=== PATIENT | female | born 1945 | race Caucasian/White ===

== ENCOUNTER 2023-05-10 16:31 | Inpatient (IN) | payer OTHER ==
[~2023-05-10] VITALS: Ht 162.6 cm; Wt 77.6 kg
[2023-05-10 16:45] VITALS: BP 69/37; PULSE 104; RESP 18; TEMP 97; O2SAT 97
[2023-05-10] MEDS ORDERED: NACL 0.9% 1,000 ML IV ONE ×2 (16:50→18:50)
[2023-05-10 17:05] LABS: HEMATOCRIT 24.3 % (36-48); MEAN CORPUSCULAR HEMOGLOBIN 30 pg (27-31); MEAN CORPUSCULAR HGB CONC 33 g/dL (33-37); MEAN CORPUSCULAR VOLUME 90.7 fL (80-94); PLATELET COUNT (AUTO) 445 K/uL (140-450); RED BLOOD CELL COUNT(AUTO) 2.68 MIL/uL (4.20-5.40); RED CELL DISTRIBUTION WIDTH 16.6 % (11.6-13.7); WHITE BLOOD COUNT (AUTO) 20.7 K/uL (4.8-10.8)
[2023-05-10 17:15] VITALS: O2SAT 97
--- NOTE | 2023-05-10 17:15 | NUR ---
Female Animal Science Professor accompanied female patient for Rectal Exam.
[2023-05-10 17:24] LABS: PROTHROMBIN TIME 12.2 secs (10.8-13.4)
[2023-05-10 17:28] LABS: ALBUMIN 2.6 g/dL (3.4-5.0); ASPARTATE AMINOTRANSFERASE 16 U/L (15-37); CARBON DIOXIDE 24.3 mmol/L (21-32); CHLORIDE 107 mmol/L (98-107); GLUCOSE 140 mg/dL (74-106); POTASSIUM 4.3 mmol/L (3.5-5.1); SODIUM SERUM 141 mmol/L (136-145); TOTAL BILIRUBIN 0.4 mg/dL (0.0-1.0); UREA NITROGEN, BLOOD 24 mg/dL (7-18)
[2023-05-10 17:36] LABS: BASOPHILS % (MANUAL) 0 % (0-2); EOSINOPHILS % (MANUAL) 12 % (0-4); LYMPHOCYTES % (MANUAL) 45 % (20-46); MONOCYTES % (MANUAL) 5 % (5-12)
[2023-05-10] MEDS ORDERED: PANTOPRAZOLE 40 MG INJ VIAL IVP ONE (17:45)
[2023-05-10] MEDS ORDERED: DOCU-299 PO (17:49)
[2023-05-10] MEDS ORDERED: CELE-136 PO (17:49)
[2023-05-10] MEDS ORDERED: ASPI-1794 PO (17:49)
[2023-05-10] MEDS ORDERED: FERR325E14 PO (17:50)
[2023-05-10] MEDS ORDERED: LOSA25TA32 PO (18:01)
[2023-05-10] MEDS ORDERED: GABA-636 PO (18:01)
[2023-05-10] MEDS ORDERED: PANT40EC56 PO (18:01)
[2023-05-10] MEDS ORDERED: PRAV10TA4 PO (18:01)
--- NOTE | 2023-05-10 18:39 | NUR ---
BLOOD TRANSFUSION STARTED, PT TOLERATING WELL
[2023-05-10] MEDS ORDERED: ONDANSETRON 4 MG/2 ML VIAL IVP PRN (18:50)
[2023-05-10] MEDS ORDERED: HYDROcodone/APAP 5/325 MG 1 TAB TAB PO ONE (18:50)
--- NOTE | 2023-05-10 19:22 | NUR ---
SBAR TO CHANTELL RANDHAWA
--- NOTE | 2023-05-10 19:45 | NUR ---
Patient resting in bed, A/Ox4, chest rise and fall symmetrical, no s/s of distress, on monitor.
[2023-05-10] MEDS ORDERED: cefTRIAXone 1,000 MG VIAL ONE (19:53)
--- NOTE | 2023-05-10 20:02 | NUR ---
Patient resting in bed, A/Ox4, chest rise and fall symmetrical, no s/s of distress, on monitor.
--- NOTE | 2023-05-10 20:50 | NUR ---
First unit of blood transfusion completed, no reaction.
--- NOTE | 2023-05-10 21:13 | NUR ---
Patient will be admitted to care of Ash RANDHAWA. Admited to ICU. Will go to room 2. Belongings list completed. Report to ICU Nurse Ash RN. ICU Nurse Ash RN verbalized understanding of report, no further questions. ICU Nurse Ash RN stated she "will get and start second unit of blood transfusion."
[2023-05-10 21:30] VITALS: PULSE 88; RESP 15; O2SAT 97
--- NOTE | 2023-05-10 21:30 | NUR ---
RECEIVED REPORT FROM ER NURSE, EDIS ABDUL. RECEIVE PT VIA GURNEY, AWAKE AND ORIENTED X 4, IN FOR GI BLEED. ON ROOM AIR AND NOT IN DISTRESS. TRANSFERRED PT SAFELY TO BED AND SIDE RAILS RAISED UP FOR SAFETY. PT IS WITH BILATERAL PERIPHERAL IV GAUGE 18 - DRY AND INTACT- WITH RIGHT IV FLOWING TO NS AT 75ML/HR, LEFT IV ON SALINE LOCKED. WITH PUREWICK IN PLACE AND ATTACHED TO SUCTION. WITH LEFT LEG STITCHES FROM KNEE SURGERY 1 WEEK AGO. ASSESSED PT AND KEPT COMFORTABLE IN BED. CALL LIGHT PLACED WITHIN REACHED. WILL MONITOR CLOSELY.
[2023-05-10 22:00] VITALS: BP 99/97; PULSE 90; RESP 15; TEMP 97; O2SAT 97
[2023-05-10] MEDS ORDERED: ZOLPIDEM 10 MG TAB PO ONE (22:20)
--- NOTE | 2023-05-10 22:20 | NUR ---
PHONE CALL FROM DR RIVERA, PULMO CHEMICAL MACHINE TENDER, MADE AWARE OF THE PTS ADMISSION TO ICU RE: GI BLEED.UPDATED ON PTS PRESENT CONDITION,QUESTIONS ANSWERED.NEW ORDERS RECEIVED.CARRIED OUT.MD WILL SEE PT IN AM. DR RIVERA ALSO AWARE PT ALERT AND ORIENTED, ON ROOM AIR SATURATION 99%, BP 120/52 HR 62.PT WILL RECIEVE 2ND UNIT OF PRBC
[2023-05-10] MEDS: ACETAMINOPHEN 325 MG TAB PO PRN (22:31)
[2023-05-10] MEDS ORDERED: ZOLPIDEM 5 MG TAB ONE (22:53)
--- NOTE | 2023-05-10 23:15 | NUR ---
HGB OF 8.0. WITH ORDER TO TRANSFUSE BLOOD. PRE-TRANSFUSION V/S 5 MINUTES PRIOR: TEMP-98.3F BP-113/94 MMHG, HR- 90 BPM, RR-15 CPM, SPO2 98%. BLOOD TRANSFUSION OF PRBC "O" POSITIVE, [id number] WITH EXPIRY DATE 06/07/23, STARTED. VERIFIED WITH 2ND ELECTRONICS RECYCLER, EDIS HEARD. REGULATED BLOOD INITIALLY TO 100 ML/HR FOR 1ST 15 MINUTES AND KEPT MONITORED FOR REACTIONS. KEPT WATCHED. Addendum: 05/11/23 at 0548 by SERGE ADAN RN WRONG TIME AND DATE
--- NOTE | 2023-05-10 23:15 | NUR ---
HGB OF 8.0. WITH ORDER TO TRANSFUSE BLOOD. PRE-TRANSFUSION V/S 5 MINUTES PRIOR: TEMP-98.3F BP-113/94 MMHG, HR- 90 BPM, RR-15 CPM, SPO2 98%. BLOOD TRANSFUSION OF PRBC "O" POSITIVE, [id number] WITH EXPIRY DATE 06/07/23, STARTED. VERIFIED WITH 2ND RESIDENTIAL GREEN BUILDING DESIGNER, EDIS HEARD. REGULATED BLOOD INITIALLY TO 100 ML/HR FOR 1ST 15 MINUTES AND KEPT MONITORED FOR REACTIONS. KEPT WATCHED.
--- NOTE | 2023-05-10 23:30 | NUR ---
BT REGULATED TO 120 ML/HR. KEPT WATCHED AND MONITORED.
[2023-05-11] VITALS (13 sets, daily range): BP systolic 101–129; BP diastolic 48–96; PULSE 63–116; RESP 14–18; TEMP 96.5–98.3; O2SAT 96–98
--- NOTE | 2023-05-11 01:30 | NUR ---
BT COMPLETED WITHOUT REACTIONS. V/S NORMAL, PT SLEEPING COMFORTABLY.
--- NOTE | 2023-05-11 05:00 | NUR ---
CHG WIPING DONE. DIAPER CHANGED- NO RECTAL BLEEDING OBSERVED. SEQUENTIAL COMPRESSION DEVICE APPLIED.
[2023-05-11 05:29] LABS: HEMATOCRIT 26.9 % (36-48)
--- NOTE | 2023-05-11 06:40 | NUR ---
PT SLEEPING COMFORTABLY ON BED. RECEIVED 1 BAG OF BLOOD DURING SHIFT WITH A TOTAL OF 2 BAGS TRANSFUSED (1 IN ER). NO GI BLEEDING, NO CRAMPING ABDOMINAL PAIN. COMPLAINTS OF LEG PAIN RELIEVED WITH REST AND TYLENOL. V/S STABLE. AFEBRILE. NO SIGNS OF DISTRESS.
[2023-05-11] MEDS ORDERED: bisacodyL 5 MG TABEC PO PRN (07:10)
--- NOTE | 2023-05-11 07:20 | NUR ---
REPORT GIVENT O [facility] NURSEPRINCESS RN. ALL QUESTIONS ANSWERED.
--- NOTE | 2023-05-11 07:30 | NUR ---
RECEIVED REPORT FROM TAMY RANDHAWA. PT. IS AWAKE AND ALERT WELL ORIENTED,SKIN DRY WARM TO TOUCH THERE IS INCISSION LINE ON LEFT KNEE DRY AND INTACTIV FLUID NN RT WRIT # 18 INFUSED NS @ 75 ML/HR THE SITE IS DRY AND INTACT. HAS PUREWICK ON FOR URINATIONS.
--- NOTE | 2023-05-11 08:20 | NUR ---
SEEN BY DR. WOOTEN AT BED SIDE ORDER RECEIVED WILL BE DOWN GRADE TO TELE.
[2023-05-11] MEDS: PANTOPRAZOLE 40 MG INJ VIAL IVP SCH ×2 (08:49→20:25)
--- NOTE | 2023-05-11 08:56 | NUR ---
PATIENT HAS BEEN SCREENED AND CATEGORIZED HIGH NUTRITION RISK. PATIENT WILL BE SEEN WITHIN 1-2 DAYS OF ADMISSION. 05/12/23-05/13/[address]
--- NOTE | 2023-05-11 09:30 | NUR ---
HAS SOFT FORM STOOL BLACK COLOR , ROSE RED BLOOD NOTICED
--- NOTE | 2023-05-11 11:00 | NUR ---
HAVE SMALL FORM BLACK STOOL HAS NO RED BLOOD NOTICED.
--- NOTE | 2023-05-11 12:15 | NUR ---
PATIENT TRANSFER TO OF002V IN WHEELCHAIR, PT IS AWAKE AND ALERT DENIED PAIN.
--- NOTE | 2023-05-11 12:20 | NUR ---
Received patient from ICU. Not in any form of distress. Initial assessment done and documented, plan of care discussed, verbalized understanding.
[2023-05-11] MEDS: HYDROcodone/APAP 5/325 MG 1 TAB TAB PO PRN ×2 (13:52→18:30)
[2023-05-11] MEDS: SUPREP BOWEL PREP KIT 354 ML SOLN.RECON PO SCH ×2 (13:54→18:51)
--- NOTE | 2023-05-11 14:02 | NUR ---
FNS REFERRAL FOR PATIENT RECEIVED ON 05/11/23 IS NOT APPLICABLE. PATIENT IS HIGH RISK AND WAS SEEN ON 05/11/23. LUIGI HENSON RD
--- NOTE | 2023-05-11 14:06 | NUR ---
05/11/23 RD INITIAL ASSESSMENT COMPLETED PLEASE REFER TO NUTRITION ASSESSMENT UNDER CARE ACTIVITY FOR ESTIMATED NUTRITIONAL NEEDS. 1. CONTINUE CLEAR LIQUID DIET TOLERATED AND ADVANCE TO FULL LIQUID DIET ONCE MEDICALLY APPROPRIATE. ONCE PATIENT IS ABLE TO TOLERATE A FULL DIET, CARDIAC DIET IS RECOMMENDED. 2. RD RECOMMENDS CASTILLO BID FOR WOUNDS WHICH WILL PROVIDE 160 CALORIES AND 5 GRAMS OF PREOTEIN. 3. RD TO FOLLOW-UP 2-3 DAYS, HIGH RISK LUIGI HENSON RD
--- NOTE | 2023-05-11 17:45 | NUR ---
Patient is actively bleeding from rectum. Dr. Hernandez made aware and ordered to transfer back to ICU. patient is stable at this time. TN=580/56, HR-66, O2 sat 98%. patient transported to ICU via bed. Bedside report given to ICU nurse.
[2023-05-11] MEDS ORDERED: OCTREOTIDE ACETATE 1.25 MG in NACL 0.9% 250 ML IV SCH (18:00)
--- NOTE | 2023-05-11 18:15 | NUR ---
RECEIVED FROM TELE IN BED , SHEI IS AWAKE AND ALERT WELL ORIENTED SKIN WARM TO TOUCH. PLACE PT. IN ICU BED 2 IV FLUID NS ON LEFT WRIT INFUSING AT 75 ML/HR.
--- NOTE | 2023-05-11 18:20 | NUR ---
PT. RESTING V/S WITH IN NORMAL LIMIT REPORT GIVE TO ORQUIDEA RANDHAWA.
--- NOTE | 2023-05-11 18:26 | NUR ---
STARTED SANDOSTATIN IV DRIP.
--- NOTE | 2023-05-11 18:30 | NUR ---
HAVE LARGE SOFT STOOL DARK RED BLOOD CLOT.
--- NOTE | 2023-05-11 18:30 | NUR ---
C/O PAIN ON HER LEFTKNEE. MEICATION GIVEN ORDER.
[2023-05-11 18:44] LABS: BASOPHILS # (AUTO) 0.2 K/uL (0.00-0.22); BASOPHILS % (AUTO) 1.5 % (0.0-2.0); EOSINOPHILS % (AUTO) 6.9 % (0.0-4.0); HEMATOCRIT 27.7 % (36-48); HEMOGLOBIN 9.2 g/dL (12.0-16.0); LYMPHOCYTES # (AUTO) 3.9 K/uL (2.5-16.5); LYMPHOCYTES % (AUTO) 27.2 % (20.5-51.1); MEAN CORPUSCULAR HEMOGLOBIN 30 pg (27-31); MEAN CORPUSCULAR HGB CONC 33 g/dL (33-37); MEAN CORPUSCULAR VOLUME 89.2 fL (80-94); MONOCYTES # (AUTO) 1.2 K/uL (0.8-1.0); MONOCYTES % (AUTO) 8.3 % (1.7-9.3); NEUTROPHILS % (AUTO) 56.1 % (42.2-75.2); PLATELET COUNT (AUTO) 358 K/uL (140-450); RED BLOOD CELL COUNT(AUTO) 3.11 MIL/uL (4.20-5.40); RED CELL DISTRIBUTION WIDTH 17.5 % (11.6-13.7); WHITE BLOOD COUNT (AUTO) 14.2 K/uL (4.8-10.8)
--- NOTE | 2023-05-11 18:45 | NUR ---
DR. PATTON CALLED SAID TO CONTINUE WITH BOWEL PREP NPO AFTER 0200 AM.
--- NOTE | 2023-05-11 19:30 | NUR ---
REPORT RECEIVED FORM DAY SHIFT RN. PT ALERT AND ORIENTED, ABLE TO MAKE NEEDS KNOWN TO STAFF. RESPIRATION EVEN AND UNLABORED, LUNG SOUNDS CLEAR UPON AUSCULTATION. NO DISTRESS NOTED, PT ON SANDOSTATIN 10ML/HR, NS-75ML/HR. SKIN WARM AND DRY. LEFT KNEE SURGICAL INCISION NOTED. CALL LIGHT WITHIN REACH, SAFETY PRECAUTIONS IN PLACE.
--- NOTE | 2023-05-11 20:30 | NUR ---
DR. WOOTEN ORDERED AMBIEN 10 MG PRN FOR INSOMNIA. PT REPOSITIONED, CLEANED AND LINEN CHANGED.
[2023-05-11 21:02] LABS: APPEARANCE,URINE SL CLOUDY (CLEAR); BILIRUBIN,URINE NEGATIVE (NEGATIVE); BLOOD, URINE 3+ (NEGATIVE); COLOR,URINE ORANGE (YELLOW); LEUKOCYTE ESTERASE ,URINE NEGATIVE (NEGATIVE); NITRITE, URINE POSITIVE (NEGATIVE); PH,URINE 5.5 (5.0-9.0); UGLUCOSE NEGATIVE (NEGATIVE)
[2023-05-11] MEDS ORDERED: ZOLPIDEM 5 MG TAB ONE (21:21)
[2023-05-11] MEDS: ZOLPIDEM 10 MG TAB PO PRN (21:26)
[2023-05-12] VITALS (8 sets, daily range): BP systolic 98–141; BP diastolic 33–75; PULSE 61–99; RESP 14–18; TEMP 96.8–97.7; O2SAT 95–100
--- NOTE | 2023-05-12 | NUR ---
PT HAD A BOWEL MOVEMENT, DARK STOOL WITH BLOOD CLOTS, PT CLEANED.
--- NOTE | 2023-05-12 04:00 | NUR ---
MORNING CARE PROVIDED, NO DISTRESS NOTED. ALL PT'S QUESTIONS ANSWERED.
[2023-05-12 05:02] LABS: BASOPHILS # (AUTO) 0.3 K/uL (0.00-0.22); BASOPHILS % (AUTO) 2.1 % (0.0-2.0); EOSINOPHILS # (AUTO) 0.9 K/uL (0-0.4); HEMATOCRIT 21.7 % (36-48); HEMOGLOBIN 7.1 g/dL (12.0-16.0); LYMPHOCYTES # (AUTO) 3.7 K/uL (2.5-16.5); LYMPHOCYTES % (AUTO) 23.8 % (20.5-51.1); MEAN CORPUSCULAR HEMOGLOBIN 29 pg (27-31); MEAN CORPUSCULAR HGB CONC 33 g/dL (33-37); MEAN CORPUSCULAR VOLUME 88.9 fL (80-94); MONOCYTES # (AUTO) 1.6 K/uL (0.8-1.0); MONOCYTES % (AUTO) 10.3 % (1.7-9.3); NEUTROPHILS # (AUTO) 8.9 K/uL (1.8-7.7); NEUTROPHILS % (AUTO) 57.8 % (42.2-75.2); PLATELET COUNT (AUTO) 268 K/uL (140-450); RED BLOOD CELL COUNT(AUTO) 2.43 MIL/uL (4.20-5.40); RED CELL DISTRIBUTION WIDTH 17.1 % (11.6-13.7); WHITE BLOOD COUNT (AUTO) 15.4 K/uL (4.8-10.8)
[2023-05-12 05:13] LABS: ALBUMIN 2.5 g/dL (3.4-5.0); ANION GAP 15.3 (8-16); ASPARTATE AMINOTRANSFERASE 14 U/L (15-37); CARBON DIOXIDE 23.7 mmol/L (21-32); CHLORIDE 109 mmol/L (98-107); CREATININE 0.9 mg/dL (0.6-1.3); GLUCOSE 123 mg/dL (74-106); SODIUM SERUM 144 mmol/L (136-145); TOTAL BILIRUBIN 0.5 mg/dL (0.0-1.0); UREA NITROGEN, BLOOD 19 mg/dL (7-18)
--- NOTE | 2023-05-12 06:00 | NUR ---
MESSAGE SENT TO DR PATTON, GI. DR PATTON CALLED AND WAS MADE AWARE THAT PTS LAST BOWEL MOVEMENT AT 12 MIDNIGHT, STILL WITH DARK STOOLS WITH CLOTS.NEW ORDER RECEIVED, TO GIVE FLEET ENEMA X 2 ("BACK TO BACK ENEMA"), ORQUIDEA RANDHAWA AWARE. SAID HE WILL BE HERE AT 0730 FOR THE COLONOSCOPY
[2023-05-12] MEDS ORDERED: SODIUM PHOSPHATE 118 ML ENEM RC ONE (06:05)
--- NOTE | 2023-05-12 06:49 | NUR ---
2 ENEMA'S ADMINISTERED ORDERED. WILL CONTINUE TO MONITOR
--- NOTE | 2023-05-12 07:18 | NUR ---
REPORT GIVEN TO DIANA RANDHAWA, PT IN NO DISTRESS. ENDORSED.
--- NOTE | 2023-05-12 07:39 | NUR ---
RECEIVED REPORT FROM ORQUIDEA RANDHAWA NIGHTB SHIFT PT IS ALERT AND ORIENTED VERBALLY RESPONSIVE. PT HAS NO SOB VS TEMP 97.6 HR 86 BP 141/75 RR 18 O2 SAT 95% ON ROOM AIR. PT ADMIT FOR BGI BLEED PT HAS X1 BM SOFT TARRY STOOL WITH MUCOUSY DARK RED BLEEDING PT HAS C/O ABDOMINAL PAIN PT IS NPO FOR COLONOSCOPY TODAY AT 0730 PT HAS S/P LEFT KNEE REPLACEMENT WITH STERI STRIPS INTACT PT ABLE TO MOVE ALL EXTREMITY EXCEPT LEFT KNEE WEAK. PT HAS LEFT WRIST WITH IV NS AT 75 ANDF OCREOTIDE DRIP AT 10 ML/HR . KEPT POAT SAFE AND COMFORTABLE WILL CONTINUE TO MONITOR. Addendum: 05/12/23 at 1208 by SIDNEY HAZEL RN 07 ORQUIDEA REPORTED PT HAS ENEMA DONE BY NURSE TODAY PT WANTS TO BE CHANGE NOW.
[2023-05-12] MEDS: HYDROcodone/APAP 5/325 MG 1 TAB TAB PO PRN (08:11)
[2023-05-12] MEDS: PANTOPRAZOLE 40 MG INJ VIAL IVP SCH ×2 (08:12→20:59)
--- NOTE | 2023-05-12 08:36 | NUR ---
DR. QUE LUCAS CAME IN AND SEE PT GET UPDATE ON PT BM TODAY AND COLONOSCOPY SCHEDULE WAS CANCEL FOR TODAY VAHE ANDUJAR AND NEW ORDERS GIVEN RVTO ALL ORDERS.
--- NOTE | 2023-05-12 09:15 | NUR ---
LAB CALL PATIENT HBG 6.5, REPORT READ BACK TO JE PENNINGTON
[2023-05-12 09:16] LABS: MEAN CORPUSCULAR HEMOGLOBIN 29 pg (27-31); MEAN CORPUSCULAR HGB CONC 33 g/dL (33-37); MEAN CORPUSCULAR VOLUME 89.6 fL (80-94); PLATELET COUNT (AUTO) 262 K/uL (140-450); RED BLOOD CELL COUNT(AUTO) 2.21 MIL/uL (4.20-5.40); RED CELL DISTRIBUTION WIDTH 17.3 % (11.6-13.7); WHITE BLOOD COUNT (AUTO) 12.5 K/uL (4.8-10.8)
[2023-05-12 09:18] LABS: HEMOGLOBIN 6.5 g/dL (12.0-16.0)
[2023-05-12 09:19] LABS: HEMATOCRIT 19.8 % (36-48)
[2023-05-12 09:26] LABS: ANION GAP 16.5 (8-16); CARBON DIOXIDE 22.6 mmol/L (21-32); CHLORIDE 108 mmol/L (98-107); CREATININE 0.9 mg/dL (0.6-1.3); GLUCOSE 133 mg/dL (74-106); POTASSIUM 4.1 mmol/L (3.5-5.1); SODIUM SERUM 143 mmol/L (136-145); UREA NITROGEN, BLOOD 19 mg/dL (7-18)
--- NOTE | 2023-05-12 09:35 | NUR ---
JOSE WOOTEN ORDERED TO TRANSFUSE R UNIT OF PRBC .
--- NOTE | 2023-05-12 10:24 | NUR ---
DR. WOOTEN CAME IN AND SEE ASSESS PT AND GET UPDATE ON PT NO NEW ORDER AT THIS TIME OF ROUNDS.
[2023-05-12] MEDS: MORPHINE SULFATE 2 MG/ML SYR IVP PRN (10:39)
--- NOTE | 2023-05-12 10:40 | NUR ---
VS IS WNL PT IS COMFORTABLE WATCHING TV NO FACIAL GRIMACE STILL PER PT SHE HAS PAIN 08/21 DR. WOOTEN WAS AWARE
--- NOTE | 2023-05-12 10:45 | NUR ---
GAVE NEW ORDER OF PAIN MEDS PER DR. WOOTEN WILL REASESS PAIN AFTER 1 HR.
[2023-05-12] MEDS ORDERED: bisacodyL 5 MG TABEC PO SCH (10:58)
[2023-05-12 11:07] LABS: BASOPHILS % (MANUAL) 0 % (0-2); BLASTS, MANUAL % 0 % (0-0); EOSINOPHILS % (MANUAL) 7 % (0-4); LYMPHOCYTES % (MANUAL) 24 % (20-46); METAMYELOCYTES % 0 % (0-0); MONOCYTES % (MANUAL) 9 % (5-12); MYELOCYTES % 0 % (0-0); OTHER CELLS,MANUAL % 0 (0-0); PROMYELOCYTES % 0 % (0-0)
[2023-05-12] MEDS ORDERED: diphenhydrAMINE 50 MG/ML VIAL ONE (12:22)
[2023-05-12] MEDS ORDERED: MIDAZOLAM 5 MG/5 ML VIAL ONE (12:23)
[2023-05-12] MEDS ORDERED: fentaNYL citrate 0.05 MG/ML VIAL ONE (12:23)
--- NOTE | 2023-05-12 13:42 | NUR ---
Miguel PENNINGTON PERFORMED COLONOSCOPY AT ICU 2 BEDSIDE. Addendum: 05/12/23 at 1446 by SIDNEY HAZEL RN AT 1420 DR. SAMANO FINISHED THE COLONOSCOPY WITH POLYPECTOMY PROCEDURE MD DIAGNOSIS IS COLON POLYP, RECTAL ULCER, HEMMORHOID, DIVERTICULOSIS 1 HEMOCLIP TO THE RECTAL ULCER. SEDATION MEDS WAS VVERSED 6 MG AND FENTANYL 100 MCG. PT TOLERATED PROCEDURE WELL,
[2023-05-12] MEDS ORDERED: MIDAZOLAM 5 MG/5 ML VIAL IV ONE (14:30)
[2023-05-12] MEDS ORDERED: fentaNYL citrate 0.05 MG/ML VIAL IVP ONE (14:30)
--- NOTE | 2023-05-12 14:35 | NUR ---
AT 1435 1ST UNIT OF PRBC STARTED VS TEMP 97.2 HR 80 , O2SAT 98% ON ROOM AIR, 13 RR , BP 121/34. NO C/O PAIN Addendum: 05/12/23 at 1704 by SIDNEY HAZEL RN 1625 END TIME FOR THE 1ST UNIT OF PRBC VS 97.4 67 HR, 13 RR 116/45 BP NO C/O PAIN NO SOB NO ITCHINESS. 1628 2ND UNIT OF PRBC STARTED VS WNL NO TEMP 97.0 HR 68 BP 116/45
[2023-05-12] MEDS: SODIUM FERRIC GLUCONATE 125 MG in NACL 0.9% 100 ML IV SCH (16:04)
--- NOTE | 2023-05-12 19:30 | NUR ---
PT RESTING COMFORTABLELY. V/S WNL.REPORT GIVE TO RISA GRAJEDA .
--- NOTE | 2023-05-12 19:39 | NUR ---
ENDORSED PT TO [facility] NIGHT FOR CONTINUTI OF CARE PT 2ND UNIT OF BLOOD FINISHED NO ADVERSE REACTION..
[2023-05-12] MEDS ORDERED: ZOLPIDEM 5 MG TAB ONE (20:54)
--- NOTE | 2023-05-12 22:04 | NUR ---
2000- REPOSITIONED , UP IN BED (HOB.30%) NO ACUTE DISTRESS
--- NOTE | 2023-05-12 22:04 | NUR ---
193- BEDSIDE ENDORSEMENT DONE WITH ELIZABETH
--- NOTE | 2023-05-12 22:06 | NUR ---
2126- AMBIEN 10 MG PO GIVEN REQUESTED.
--- NOTE | 2023-05-12 22:45 | NUR ---
PT WAS TRANSFERRED TO [facility] [[email or web address]] FROM ICU THRU [facility] WITH DIAGNOSIS IRON DEFICIENCY ANEMIA SECONDARY TO BLOOD LOSS. PT IS AOX4, BEDREST, ABLE TO VERBALIZE NEEDS AND ABLE TO FOLLOW COMMANDS. PT IS ON ROOM AIR AND ON FULL LIQUID DIET. PT HAS IV ON LEFT ARM GAUGE 20, SALINE LOCK. PT HAS HEALED LEFT KNEE SURGICAL WOUND. PT DENIES PAIN AT THIS TIME. NO S/S OF RESPIRATORY DISTRESS NOTED. ALL SAFETY MEASURES IMPLEMENTED. BED IN LOW POSITION. BED WHEELS ON LOCK AND CALL LIGHT WITHIN REACH.
--- NOTE | 2023-05-12 22:49 | NUR ---
2245- TRANSFFERED WITH BELONGINGS BY BED TO ROOM 112a . VITALSARE STABLE . ALERT AND AWAKE
[2023-05-13] VITALS: BP 146/51; PULSE 62; PULSE 63; RESP 18; TEMP 98.2; O2SAT 98
--- NOTE | 2023-05-13 | NUR ---
PT IS ON SLEEP. CHEST RISE AND FALL SYMMETRICALLY NOTED. RESPIRATION IS EVEN AND UNLABORED. ALL SAFETY MEASURES IMPLEMENTED. BED IN LOW POSITION, BED WHEELS ON LOCK AND CALL LIGHT WITHIN REACH.
--- NOTE | 2023-05-13 02:00 | NUR ---
CHECKED THE PT, STILL ON SLEEP. CHEST RISE AND FALL SYMMETRICALLY NOTED. RESPIRATION IS EVEN AND UNLABORED. ALL SAFETY MEASURES IMPLEMENTED. BED IN LOW POSITION, BED WHEELS ON LOCK AND CALL LIGHT WITHIN REACH.
[2023-05-13 04:00] VITALS: BP 136/62; PULSE 80; PULSE 81; RESP 18; TEMP 98; O2SAT 96
--- NOTE | 2023-05-13 04:00 | NUR ---
MORNING CARE WAS DONE TO PT. CLEANED PT, CHANGED DIAPER, LINENS, GOWN AND BLANKET. ALL SAFETY MEASURES IMPLEMENTED. BED IN LOW POSITION, BED WHEELS ON LOCK AND CALL LIGHT WITHIN REACH.
[2023-05-13 06:14] LABS: BASOPHILS # (AUTO) 0.2 K/uL (0.00-0.22); BASOPHILS % (AUTO) 1.3 % (0.0-2.0); EOSINOPHILS # (AUTO) 0.7 K/uL (0-0.4); EOSINOPHILS % (AUTO) 6.2 % (0.0-4.0); HEMATOCRIT 27.8 % (36-48); HEMOGLOBIN 9.7 g/dL (12.0-16.0); LYMPHOCYTES # (AUTO) 2.2 K/uL (2.5-16.5); LYMPHOCYTES % (AUTO) 18.5 % (20.5-51.1); MEAN CORPUSCULAR HEMOGLOBIN 31 pg (27-31); MEAN CORPUSCULAR HGB CONC 35 g/dL (33-37); MEAN CORPUSCULAR VOLUME 87.5 fL (80-94); MONOCYTES # (AUTO) 1.3 K/uL (0.8-1.0); MONOCYTES % (AUTO) 11.2 % (1.7-9.3); NEUTROPHILS # (AUTO) 7.5 K/uL (1.8-7.7); NEUTROPHILS % (AUTO) 62.8 % (42.2-75.2); PLATELET COUNT (AUTO) 221 K/uL (140-450); RED BLOOD CELL COUNT(AUTO) 3.18 MIL/uL (4.20-5.40); RED CELL DISTRIBUTION WIDTH 16.9 % (11.6-13.7)
[2023-05-13 06:41] LABS: ANION GAP 13.7 (8-16); CARBON DIOXIDE 23.3 mmol/L (21-32); CHLORIDE 111 mmol/L (98-107); CREATININE 0.8 mg/dL (0.6-1.3); GLUCOSE 121 mg/dL (74-106); SODIUM SERUM 144 mmol/L (136-145); UREA NITROGEN, BLOOD 13 mg/dL (7-18)
--- NOTE | 2023-05-13 07:20 | NUR ---
ASSUMED CONTINUITY OF CARE. INITIAL ASSESSMENT DONE. RE-ORIENTED TO EVENTS AND SURROUNDINGS. KEEP COMFORTABLE ON BED. EXPLAINED USE OF CALL LIGHT/BED/TV/BATHROOM. VERBALIZED UNDERSTANDING. FALL PRECAUTION APPLIED. CALL LIGHT WITHIN REACH.
--- NOTE | 2023-05-13 07:22 | NUR ---
PT IS STABLE. ENDORSED PT TO MORNING SHIFT NURSE FOR CONTINUITY OF CARE.
[2023-05-13 08:00] VITALS: BP 158/71; PULSE 65; PULSE 71; RESP 18; TEMP 97.7; TEMP 97.8; O2SAT 98
[2023-05-13] MEDS: POLYETHYLENE GLYCOL 17 GM/PKT PO SCH (08:57)
[2023-05-13] MEDS: PSYLLIUM 12.2 GM/PKT PO SCH (09:29)
--- NOTE | 2023-05-13 11:30 | NUR ---
INSERTED NEW IV ON LEFT FOREARM GAUGE #22. TOLERATED WELL. REMOVED IV ON RIGHT WRIST GAUGE #18 DUE TO LEAKAGE.
[2023-05-13 12:00] VITALS: BP 147/68; PULSE 69; PULSE 71; RESP 16; TEMP 98.1; O2SAT 99
[2023-05-13] MEDS: MORPHINE SULFATE 2 MG/ML SYR IVP PRN ×2 (12:54→16:49)
[2023-05-13] MEDS: SODIUM FERRIC GLUCONATE 125 MG in NACL 0.9% 100 ML IV SCH (15:47)
[2023-05-13 16:00] VITALS: BP 140/81; PULSE 58; PULSE 87; RESP 18; TEMP 98.7; O2SAT 96
--- NOTE | 2023-05-13 16:00 | NUR ---
05/13/23 RD FOLLOW UP COMPLETED.PLEASE REFER TO NUTRITION ASSESSMENT UNDER CARE ACTIVITY FOR ESTIMATED NUTRITIONAL NEEDS. 1. CONTINUE WITH CARDIAC DIET 2. RECOMMEND CASTILLO BID FOR WOUNDS (PROVIDE 160 CALORIES AND 5 GRAMS OF PROTEIN) RECOMMENDED BY RD 05/11/23. 3. RD TO FOLLOW-UP IN 2-3 DAYS PATIENT IS HIGH RISK. SWATHI GALLEGOS RD
--- NOTE | 2023-05-13 19:11 | NUR ---
BEDSIDE REPORT GIVEN TO SHERYL CALVILLO. IN STABLE CONDITION.
[2023-05-13 20:00] VITALS: BP 124/60; PULSE 65; PULSE 79; RESP 18; TEMP 98.8; O2SAT 97; O2SAT 98
[2023-05-13] MEDS: ZOLPIDEM 10 MG TAB PO PRN (21:34)
[2023-05-13] MEDS: ACETAMINOPHEN 325 MG TAB PO PRN (21:38)
[2023-05-14] VITALS: BP 100/60; PULSE 64; PULSE 70; RESP 18; TEMP 98.7; O2SAT 96
[2023-05-14 04:00] VITALS: BP 111/59; PULSE 66; PULSE 80; RESP 18; TEMP 98.8; O2SAT 97
--- NOTE | 2023-05-14 07:18 | NUR ---
ENDORSED PT FOR CONT. OF CARE .
--- NOTE | 2023-05-14 07:19 | NUR ---
RECEIVED PT FROM MECHANICAL TEST TECHNICIAN NURSE FOR CONTINUITY OF CARE. PT IS AWAKE, AOX3. PT ABLE TO VERBALIZE NEEDS. RESPIRATIONS EVEN AND UNLABORED ON RA. NO DISTRESS NOTED. IV ON L WRIST 22G AND LAC 22G, TKO. SUTURE ON L KNEE MANAGER OF FINANCIAL REPORTING. PUREWICK IN PLACE. SKIN WARM AND DRY. CALL LIGHT WITHIN REACH. ALL SAFETY PRECAUTIONS IN PLACE.
[2023-05-14 08:00] VITALS: BP 154/68; PULSE 63; PULSE 67; RESP 19; TEMP 97.6; O2SAT 97
[2023-05-14] MEDS ORDERED: ROC2I IV (08:01)
[2023-05-14] MEDS ORDERED: AZIT250T11 PO (08:01)
[2023-05-14] MEDS: POLYETHYLENE GLYCOL 17 GM/PKT PO SCH (09:44)
[2023-05-14] MEDS: PSYLLIUM 12.2 GM/PKT PO SCH (09:44)
[2023-05-14] MEDS: MORPHINE SULFATE 2 MG/ML SYR IVP PRN (10:10)
[2023-05-14 12:00] VITALS: BP 138/52; PULSE 59; PULSE 61; RESP 19; TEMP 97.4; O2SAT 98
--- NOTE | 2023-05-14 14:41 | NUR ---
MAKING ROUNDS, PT IN BED WATCHING TV. CALL LIGHT WITHIN REACH.
[2023-05-14 16:00] VITALS: BP 141/62; PULSE 61; RESP 19; TEMP 98.4; O2SAT 98
[2023-05-14] MEDS: SODIUM FERRIC GLUCONATE 125 MG in NACL 0.9% 100 ML IV SCH (16:19)
--- NOTE | 2023-05-14 17:51 | NUR ---
DC PLANNING: PATIENT HAS A [place] [facility] [place] WITH OUT AUTHORIZATION CAN NOT TAKE PATIENT. CALLED [facility] CLOSED FOR THE HOLIDAY. CM TO FOLLOW Addendum: 05/16/23 at 1603 by MAMADOU DAVIDSON CM received order for patient to go to snf for pt. faxed all paperwork to [facility]. spoke with adryan at [facility] located at [address] [place] [address], patient will be going back to room 32-A. hard auth given by lien poe to [facility] [place] [facility] will be arranged with [facility] with a at 1700. charge nurse Aubrey and daughter Zahida
[2023-05-14] MEDS: HYDROcodone/APAP 5/325 MG 1 TAB TAB PO PRN (18:54)
--- NOTE | 2023-05-14 19:10 | NUR ---
ENDORSED PT TO SALES RECRUITMENT SPECIALIST NURSE FOR CONTINUITY OF CARE. PT STABLE.
[2023-05-14 20:00] VITALS: BP 146/58; PULSE 65; PULSE 74; RESP 18; TEMP 98.8; O2SAT 98
--- NOTE | 2023-05-14 20:00 | NUR ---
received pt aaox4 , nid , denies pain at this time , Left knee surgical wound dry and intact , HARISH , afebrile , iv sites intact and patent . will cont. to monitor , on purewick , call light within reach .
--- NOTE | 2023-05-14 22:00 | NUR ---
bp 146/ 58 , hr 65 , rr 18 , o2 sat 98 % - requesting sleeping pill . will give it .
[2023-05-14] MEDS: ZOLPIDEM 10 MG TAB PO PRN (22:09)
[2023-05-15] VITALS: BP 140/85; PULSE 70; RESP 18; TEMP 98.6; O2SAT 97
--- NOTE | 2023-05-15 | NUR ---
ROUNDS , NO S/S OF ACUTE DISTRESS NOTED , ON TELE MONITOR - SR , WILL CONT. TO MONITOR . , CALL LIGHT WITHIN REACH .
[2023-05-15 04:00] VITALS: BP 142/60; PULSE 58; PULSE 63; RESP 18; TEMP 98.5; O2SAT 97
--- NOTE | 2023-05-15 04:00 | NUR ---
NO COMPLAIN MADE .
--- NOTE | 2023-05-15 07:10 | NUR ---
RECEIVED PATIENT FROM PM NURSE FOR CONTINUATION OF CARE
--- NOTE | 2023-05-15 07:35 | NUR ---
AWAKE , ENDORSED PT FOR CONT. OF CARE .
[2023-05-15 08:00] VITALS: PULSE 60; RESP 18; TEMP 97.3; O2SAT 99
[2023-05-15] MEDS: PSYLLIUM 12.2 GM/PKT PO SCH (09:07)
[2023-05-15] MEDS: MORPHINE SULFATE 2 MG/ML SYR IVP PRN ×2 (09:09→19:15)
[2023-05-15] MEDS: POLYETHYLENE GLYCOL 17 GM/PKT PO SCH (09:09)
[2023-05-15 10:27] VITALS: BP 160/61; PULSE 60; PULSE 85; RESP 18; TEMP 97.3; O2SAT 97
[2023-05-15 12:43] LABS: BASOPHILS % (AUTO) 0.3 % (0.0-2.0); EOSINOPHILS # (AUTO) 0.7 K/uL (0-0.4); EOSINOPHILS % (AUTO) 5.9 % (0.0-4.0); HEMATOCRIT 30.5 % (36-48); HEMOGLOBIN 10.2 g/dL (12.0-16.0); LYMPHOCYTES # (AUTO) 3.2 K/uL (2.5-16.5); LYMPHOCYTES % (AUTO) 25.6 % (20.5-51.1); MEAN CORPUSCULAR HEMOGLOBIN 30 pg (27-31); MEAN CORPUSCULAR HGB CONC 33 g/dL (33-37); MEAN CORPUSCULAR VOLUME 90.8 fL (80-94); MONOCYTES # (AUTO) 1.6 K/uL (0.8-1.0); NEUTROPHILS # (AUTO) 6.9 K/uL (1.8-7.7); NEUTROPHILS % (AUTO) 55.2 % (42.2-75.2); PLATELET COUNT (AUTO) 252 K/uL (140-450); RED BLOOD CELL COUNT(AUTO) 3.36 MIL/uL (4.20-5.40); RED CELL DISTRIBUTION WIDTH 17.2 % (11.6-13.7); WHITE BLOOD COUNT (AUTO) 12.6 K/uL (4.8-10.8)
[2023-05-15 12:46] LABS: ANION GAP 10.8 (8-16); CARBON DIOXIDE 30.3 mmol/L (21-32); CHLORIDE 108 mmol/L (98-107); CREATININE 0.8 mg/dL (0.6-1.3); GLUCOSE 93 mg/dL (74-106); POTASSIUM 4.1 mmol/L (3.5-5.1); SODIUM SERUM 145 mmol/L (136-145); UREA NITROGEN, BLOOD 13 mg/dL (7-18)
[2023-05-15 16:00] VITALS: BP 136/72; PULSE 73; RESP 18; TEMP 97.7; O2SAT 100
--- NOTE | 2023-05-15 19:20 | NUR ---
ENDORSED PATIENT TO PM NURSE FOR CONTINUITY OF CARE.
--- NOTE | 2023-05-15 19:30 | NUR ---
RECEIVED PT IN BED AWAKE, ALERT AND ORIENTED X 4. PAIN MEDICATION GIVEN BY AM NURSE DUE TO KNEE PAIN. NO DISTRESS NOTED. SKIN WARM AND DRY TO TOUCH. SKIN WARM AND DRY TO TOUCH. SAFETY PRECAUTIONS IN PLACE, CALL LIGHT IN REACH, INSTRUCTED CALL IF ASSISTANCE IS NEEDED, ENCOURAGED TO CALL IF ASSISTANCE IS NEEDED, PT VERBALLY ACKNOWLEDGED.
[2023-05-15 20:00] VITALS: BP 133/43; PULSE 70; RESP 18; TEMP 98.2; O2SAT 98
--- NOTE | 2023-05-15 20:15 | NUR ---
RE-ASSESSED FOR PAIN, CURRENTLY PATIENT DENIES PAIN. MADE COMFORTABLE IN BED. CALL LIGHT WITHIN REACH.
[2023-05-15] MEDS: ZOLPIDEM 10 MG TAB PO PRN (21:04)
--- NOTE | 2023-05-16 00:04 | NUR ---
PATIENT IS ASLEEP. BREATHING EVEN AND UNLABORED. CALL LIGHT WITHIN REACH.
[2023-05-16 04:00] VITALS: BP 148/55; PULSE 75; RESP 18; TEMP 96.8; O2SAT 98
--- NOTE | 2023-05-16 04:52 | NUR ---
AM CARE RENDERED. MADE COMFORTABLE IN BED. CALL LIGHT PLACED WITHIN REACH.
[2023-05-16] MEDS: MORPHINE SULFATE 2 MG/ML SYR IVP PRN (05:28)
--- NOTE | 2023-05-16 06:22 | NUR ---
PATIENT IS ASLEEP. NO DISTRESS NOTED. ALL NEEDS ATTENDED TO. SAFETY PRECAUTIONS MAINTAINED DURING THE SHIFT, CALL LIGHT REMAINS WITHIN REACH.
[2023-05-16 06:35] LABS: BASOPHILS # (AUTO) 0.2 K/uL (0.00-0.22); BASOPHILS % (AUTO) 1.7 % (0.0-2.0); EOSINOPHILS # (AUTO) 0.8 K/uL (0-0.4); EOSINOPHILS % (AUTO) 7.9 % (0.0-4.0); HEMATOCRIT 28.3 % (36-48); HEMOGLOBIN 9.6 g/dL (12.0-16.0); LYMPHOCYTES # (AUTO) 3.1 K/uL (2.5-16.5); LYMPHOCYTES % (AUTO) 30.1 % (20.5-51.1); MEAN CORPUSCULAR HEMOGLOBIN 31 pg (27-31); MEAN CORPUSCULAR HGB CONC 34 g/dL (33-37); MEAN CORPUSCULAR VOLUME 90.6 fL (80-94); MONOCYTES # (AUTO) 1.6 K/uL (0.8-1.0); MONOCYTES % (AUTO) 15.4 % (1.7-9.3); NEUTROPHILS # (AUTO) 4.6 K/uL (1.8-7.7); NEUTROPHILS % (AUTO) 44.9 % (42.2-75.2); PLATELET COUNT (AUTO) 245 K/uL (140-450); RED BLOOD CELL COUNT(AUTO) 3.12 MIL/uL (4.20-5.40); RED CELL DISTRIBUTION WIDTH 17.2 % (11.6-13.7); WHITE BLOOD COUNT (AUTO) 10.3 K/uL (4.8-10.8)
[2023-05-16 06:46] LABS: ANION GAP 10.3 (8-16); CARBON DIOXIDE 28.6 mmol/L (21-32); CHLORIDE 109 mmol/L (98-107); CREATININE 0.8 mg/dL (0.6-1.3); GLUCOSE 92 mg/dL (74-106); POTASSIUM 3.9 mmol/L (3.5-5.1); SODIUM SERUM 144 mmol/L (136-145); UREA NITROGEN, BLOOD 14 mg/dL (7-18)
[2023-05-16 06:53] LABS: MAGNESIUM 1.9 mg/dL (1.8-2.4); PHOSPHORUS 3.9 mg/dL (2.5-4.9)
--- NOTE | 2023-05-16 07:08 | NUR ---
RECEIVED REPORT FROM IMPREGNATOR AND DRIER HELPER NURSE, DESTINY, FOR CONTINUITY OF CARE. PT IN BED SLEEPING AT THIS TIME. RESPIRATIONS ARE EVEN AND UNLABORED ON ROOM AIR. NO SIGNS OF DISTRESS NOTED. PT IS ALERT AND ORIENTED X4, ABLE TO VERBALIZE NEEDS, ABLE TO FOLLOW COMMANDS. ABD IS NONTENDER, NONDISTENDED, WITH BOWEL SOUNDS PRESENT IN ALL QUADRANTS. PT IS CURRENTLY ON CARDIAC DIET, TOLERATING WELL. PT IS CONTINENT OF BOWEL AND BLADDER, ABLE TO AMBULATE INDEPENDENTLY TO REST ROOM WITH ASSISTANCE. PER IMPREGNATOR AND DRIER HELPER NURSE, LAST BOWEL MOVEMENT WAS 05/15/23.PT HAS IV TO LFA 22G, RUNNING NS AT TKO. PT HAS DISCHARGE ORDERS, HOWEVER, AWAITING APPROVAL FROM PT SNF. SKIN IS WARM, AND DRY. PT IS S/P L KNEE REPLACEMENT 2 WEEKS, WITH SX INCISION DRY AND HEALING WELL. CALL LIGHT WITHIN REACH. ALL SAFETY MEASURES IN PLACE.
[2023-05-16 08:00] VITALS: BP 136/95; PULSE 66; PULSE 68; RESP 18; RESP 20; TEMP 97.4; O2SAT 100; O2SAT 99
--- NOTE | 2023-05-16 08:00 | NUR ---
Patient's Plan of Care was discussed and reviewed with MOTOR VEHICLE EMISSIONS INSPECTOR: Farhana
[2023-05-16] MEDS: PSYLLIUM 12.2 GM/PKT PO SCH (09:00)
[2023-05-16] MEDS: POLYETHYLENE GLYCOL 17 GM/PKT PO SCH (09:42)
[2023-05-16] MEDS: HYDROcodone/APAP 5/325 MG 1 TAB TAB PO PRN (09:43)
--- NOTE | 2023-05-16 09:44 | NUR ---
PT COMPLAINING OF PAIN. RATES PAIN 5-6/10. ADMINISTERED PAIN MEDICATION. WILL RE-ASSESS.
--- NOTE | 2023-05-16 10:45 | NUR ---
WENT TO RE-ASSESS PT. PT SLEEPING AT THIS TIME. RESPIRATIONS ARE EVEN AND UNLABORED. NO SIGNS OF PAIN OR DISCOMFORT.
--- NOTE | 2023-05-16 13:26 | NUR ---
DID ROUNDS ON PT. PT ASKING WHEN SHE WILL BE DISCHARGING. EXPLAINED TO PT AWAITING APPROVAL FROM HER SNF. PT VERBALIZED UNDERSTANDING.
--- NOTE | 2023-05-16 14:29 | NUR ---
05/16/23 RD FOLLOW UP COMPLETED PLEASE REFER TO NUTRITION ASSESSMENT UNDER CARE ACTIVITY FOR ESTIMATED NUTRITIONAL NEEDS. 1. CONTINUE CARDIAC DIET TOLERATED 2. RD WILL CONTINUE TO MONITOR PO INTAKE, WEIGHTS, GI ISSUES AND NUTRITION RELATED LABS. 3. RD TO FOLLOW-UP 3-5 DAYS, MODERATE RISK LUIGI HENSON, RD
--- NOTE | 2023-05-16 16:05 | NUR ---
PT HAS DISCHARGE ORDER. WAS INFORMED BY CHARGE NURSE PT WILL BE PICKED UP BY [facility] AT 1700. CALLED [facility] TO GIVE REPORT. SPOKE WITH LEXI. WENT OVER DISCHARGE PAPERWORK WITH PT. ANSWERED ALL QUESTIONS. PT VERBALIZED UNDERSTANDING. PT SIGNED ALL PAPERWORK.
[2023-05-16 16:33] VITALS: BP_DIAS 90
--- NOTE | 2023-05-16 18:28 | NUR ---
PT DISCHARGED BACK TO [facility]. IV LEFT IN PLACE TO CONTINUE IV ABX AT FACILITY. ALL BELONGINGS TAKEN UPON DISCHARGE.
== END 2023-05-16 18:27 | DRG 871 ==
LOC: MED 16:31 → MMU 19:06 → MIC 20:47 → MTU 05-11 11:51 → MIC 05-11 17:45 → MTU 05-12 22:45
PROVIDERS: ADMIT Student in an Organized Health Care Education/Training Program; ATTEND Student in an Organized Health Care Education/Training Program
PROC: 30233N1 Transfusion of Nonautologous Red Blood Cells into Peripheral Vein, Percutaneous Approach (ICD-10-PCS; 2023-05-12)
PROC: 0DBL8ZZ Excision of Transverse Colon, Via Natural or Artificial Opening Endoscopic (ICD-10-PCS; principal; 2023-05-12 12:30)
PROC: 0W3P8ZZ Control Bleeding in Gastrointestinal Tract, Via Natural or Artificial Opening Endoscopic (ICD-10-PCS; 2023-05-12 12:30)
DX: A41.9 Sepsis, unspecified organism (principal); E43 Unspecified severe protein-calorie malnutrition; R57.8 Other shock; K62.6 Ulcer of anus and rectum; D62 Acute posthemorrhagic anemia; K56.41 Fecal impaction; I10 Essential (primary) hypertension; E78.5 Hyperlipidemia, unspecified; G62.9 Polyneuropathy, unspecified; E78.00 Pure hypercholesterolemia, unspecified; K57.90 Diverticulosis of intestine, part unspecified, without perforation or abscess without bleeding; E66.9 Obesity, unspecified; K64.8 Other hemorrhoids
CPT/HCPCS: 36415; 36430; 71045; 80048; 80053; 81001; 83735; 84100; 84484; 85018; 85025; 85610; 85730; 86886; 86900; 86901; 86920; 87040; 87086; 88305; 93005; 96361; 96365; 96375; 97110; 97112; 97116; 97530; 99291; C9113; J0696; J1200; J2250; J2270; J2354; J2916; J3010; J7030; J7060; P9016; Q9967

== ENCOUNTER 2023-05-19 23:08 | Inpatient (IN) | payer OTHER ==
[~2023-05-19] VITALS: Ht 157.5 cm; Wt 74.8 kg
[~2023-05-19 23:08] MED LIST: ASPI-1794 PO; AZIT250T11 PO; CELE-136 PO; DOCU-299 PO; FERR325E14 PO; GABA-636 PO; LOSA25TA32 PO; PANT40EC56 PO; PRAV10TA4 PO; ROC2I IV
[2023-05-19 23:10] VITALS: BP 119/52; PULSE 95; RESP 16; TEMP 98.2; O2SAT 97
--- NOTE | 2023-05-19 23:10 | NUR ---
BHASKAR DIXON. TAKEN TO ER BED 1
[2023-05-19] MEDS ORDERED: NACL 0.9% 1,000 ML IV SCH (23:20)
[2023-05-19] MEDS ORDERED: PANTOPRAZOLE 40 MG in SODIUM CHLORIDE FLUSH 250 ML IV ONE (23:20)
[2023-05-19 23:30] LABS: BASOPHILS # (AUTO) 0.2 K/uL (0.00-0.22); BASOPHILS % (AUTO) 2.1 % (0.0-2.0); EOSINOPHILS # (AUTO) 1.4 K/uL (0-0.4); EOSINOPHILS % (AUTO) 11.6 % (0.0-4.0); HEMATOCRIT 27.5 % (36-48); HEMOGLOBIN 9.1 g/dL (12.0-16.0); LYMPHOCYTES # (AUTO) 4.4 K/uL (2.5-16.5); LYMPHOCYTES % (AUTO) 36.5 % (20.5-51.1); MEAN CORPUSCULAR HEMOGLOBIN 31 pg (27-31); MEAN CORPUSCULAR HGB CONC 33 g/dL (33-37); MEAN CORPUSCULAR VOLUME 92.3 fL (80-94); MONOCYTES # (AUTO) 1.3 K/uL (0.8-1.0); MONOCYTES % (AUTO) 11.1 % (1.7-9.3); NEUTROPHILS # (AUTO) 4.6 K/uL (1.8-7.7); NEUTROPHILS % (AUTO) 38.7 % (42.2-75.2); PLATELET COUNT (AUTO) 261 K/uL (140-450); RED BLOOD CELL COUNT(AUTO) 2.98 MIL/uL (4.20-5.40); RED CELL DISTRIBUTION WIDTH 18.1 % (11.6-13.7)
[2023-05-19] MEDS ORDERED: PANTOPRAZOLE 40 MG INJ VIAL ONE (23:37)
--- NOTE | 2023-05-19 23:37 | NUR ---
PT ON BEDSIDE AUTO REPAIR TECHNICIAN . 20G IV CATH PLACED IN L AC
[2023-05-19 23:47] LABS: ALBUMIN 2.9 g/dL (3.4-5.0); AMYLASE 81 U/L (25-115); ANION GAP 12.1 (8-16); ASPARTATE AMINOTRANSFERASE 16 U/L (15-37); CARBON DIOXIDE 26.9 mmol/L (21-32); CHLORIDE 106 mmol/L (98-107); CREATININE 1.1 mg/dL (0.6-1.3); GLUCOSE 108 mg/dL (74-106); LIPASE 218 U/L (73-393); SODIUM SERUM 141 mmol/L (136-145); TOTAL BILIRUBIN 0.3 mg/dL (0.0-1.0); UREA NITROGEN, BLOOD 26 mg/dL (7-18)
--- NOTE | 2023-05-19 23:55 | NUR ---
PT CLEANED AT THIS TIME. DR. PERES TO BEDSIDE TO VISUALIZE BLOOD AMT AND CLOTS. NO FURTHER ORDERS. PT UPDATED ON POC FOR ADMISSION.
[2023-05-20] VITALS (12 sets, daily range): BP systolic 98–164; BP diastolic 39–93; PULSE 61–99; RESP 15–22; TEMP 96.2–97.2; O2SAT 93–99
--- NOTE | 2023-05-20 00:30 | NUR ---
Dr. Flynn examining patient.
--- NOTE | 2023-05-20 00:30 | NUR ---
PT CALLED JIG OPERATOR LIGHT. KALIN HERNANDEZ TO BEDSIDE. PT APPEARED TO BE HAVING VASAL VEGAL RESPONSE TO BOWEL MOVEMENT. PT UNRESPONSIVE, DIAPHORETIC, HR 37. CRASH CART TO BED. DR. PERES TO BEDSIDE. PT BEGINS TO WAKE UP APPROXIMATELY WITHIN A MINUTE. NEW ORDERS GIVEN BY DR. PERES. PT UPDATED ON POC FOR ADMISSION BY DR. PERES. NEW VS HR71, 110/52, RR EVEN AND UNLABORED. PT DENIES ANY PAIN AT THIS TIME. PT CLEANED AT THIS TIME. LARGE AMOUNT OF BLOOD NOTED WITH CLOTS. O NEGATIVE BLOOD ORDERED BY DR. PERES TO BE GIVEN EMERGENT.
--- NOTE | 2023-05-20 01:04 | NUR ---
PT MOVED TO ER BED 5
--- NOTE | 2023-05-20 01:30 | NUR ---
CT AT BEDSIDE. PER DR. PERES PT DOES NEED THE CT DUE TO GI BLEED, BUT CAN BE DONE WHEN PT IS STABLE. PT TO UNSTABLE FOR CT AT THIS TIME.
--- NOTE | 2023-05-20 01:46 | NUR ---
PT RESTING, NO S/S OF DISTRESS NOTED. VSS
--- NOTE | 2023-05-20 02:39 | NUR ---
SPOKE WITH JAIRO AT [facility], UPDATED ON POC AND ADMISSION.
--- NOTE | 2023-05-20 03:00 | NUR ---
Patient will be admitted to care of DR. RODRIGUEZ. Admited to ICU. Will go to room 2. Belongings list completed. Report to HARVEY RANDHAWA.
--- NOTE | 2023-05-20 03:00 | NUR ---
RECEIVED PT FROM ER VIA GURNEY.PT TRANSFERRED TO ICU 2.MONITORS ATTACHED.SR NOTED ON MONITOR.LUNGS CLEAR ON AUSCULTATION, ON ROOM AIR.NO SOB NOTED.W/PERIPHERAL IV TO LT AC G20 INFUSING ORDERED IVF AND RT F/A G24,SALINE LOCK.MAINTAINED ON NOTHING BY MOUTH.ABDOMEN SOFT,NON DISTENDED.SMALL AMT OF BLOOD NOTED ON DIAPER ON ADMISSION.DENIES PAIN.FALL PRECAUTION IN PLACE.CALL LIGHT WITHIN REACH.
--- NOTE | 2023-05-20 03:30 | NUR ---
PT TAKEN TO CT FOR CT OF ABDOMEN WITHOUT CONTRAST.MONITORS ATTACHED.NO UNTOWARD INCIDENT NOTEDTO AND FROM CT.PT PLACED BACK TO ICU BED 2.
--- NOTE | 2023-05-20 03:36 | NUR ---
CALLED DR. OLIVARES'S EXCHANGE TO NOTIFY HER THAT PT. ADMITTED IN ICU AND PER EXCHANGE DR. MAYER IS THE MINERAL SURVEYOR AND WILL BE NOTIFIED.
--- NOTE | 2023-05-20 03:38 | NUR ---
SENT MESSAGE TO DR. Connor SAMANO THAT PT. IS HERE IN ICU AND ACTIVE RECTAL BLEEDING, 1 UNIT PRBC TRANSFUSED AND 2ND UNIT WILL BE TRANSFUSED. PT. ON CT ABDOMEN/PELVIS W/O CONTRAST RIGHT NOW. WILL WAIT FOR HIS RESPONSE AND WILL ENDORSE TO NEXT SHIFT.
--- NOTE | 2023-05-20 04:00 | NUR ---
2ND UNIT PRBC STARTED VERIFIED W/RASHAD RN INSPECTING SUPERVISOR AND LAMONT RANDHAWA CHARGE. EXPLAINED TO PT TO TELL THE CABLE FORMER IF SOB,PAIN,ITCHINESS OCCURS WHILE BLOOD TRANSFUSION IS ONGOING,PT VERBALIZED UNDERSTANDING
[2023-05-20] MEDS: NACL 0.9% 1,000 ML IV SCH ×2 (04:05→12:03)
--- NOTE | 2023-05-20 05:00 | NUR ---
ONGOING BLOOD TRANSFUSION,NO UNTOWARD REACTIONS NOTED AT THIS TIME.PT ASLEEP,EASILY AROUSABLE.DENIES SOB.DENIES PAIN.WILL CONTINUE TO CLOSELY MONITOR PT
--- NOTE | 2023-05-20 06:00 | NUR ---
PT ASLEEP;EASILY AROUSABLE.STILL ONGOING BLOOD TRANSFUSION.NO ALLERGIC REACTIONS NOTED.DENIES PAIN.REPOSITIONED FOR COMFORT
[2023-05-20] MEDS ORDERED: PANTOPRAZOLE 80 MG in NACL 0.9% 100 ML IVP SCH (07:20)
--- NOTE | 2023-05-20 07:20 | NUR ---
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
--- NOTE | 2023-05-20 07:28 | NUR ---
DR. JARRETT MAYER ROUNDING ICU; VORBO: ROUTINE ABG; CALL MD WITH CRITICAL VALUES
--- NOTE | 2023-05-20 07:30 | NUR ---
DR. MAYER CAME IN AND ASSESS PT DID CHART REVIEW NO NEW ORDER FOR NURSING
--- NOTE | 2023-05-20 07:30 | NUR ---
RECEIVED REPORT FROM HARVEY RANDHAWA PT ADMITTED FOR GI BLEED. PT IS LADERT AND ORIENTED X3 VERBAL RESPONSIVE. PT VS 96.8, 66 HR, 96% O2 SAT. 100/50 BP PT HAS NO C/O PAIN NO SOB. PT IS SR ON THE MONITOR. SOFT NON TENEDER ABDOMEN PT HAS IV PERIPHERAL ON LEFT AC AND RIGHT FA IV NEED TO BE D/C WITH IVF 100 ML NS RUNNING PT HAS LEFT KNEE S/P KNEE REPLACEMENT WITH STERI STRIPS INTACT. PT CALL LIGHT WITHIN REACH. BED IS LOCKED AND IN LOW POSITION. KEPT PATIENT SAFE AND COMFORTABLE WILL CONTINUE TO MONITOR.
[2023-05-20] MEDS ORDERED: MAG SULF 2000 MG/WATER PREMIX 50 ML IV PRN (08:00)
--- NOTE | 2023-05-20 09:09 | NUR ---
PATIENT HAS BEEN SCREENED AND CATEGORIZED MODERATE NUTRITION RISK. PATIENT WILL BE SEEN WITHIN 3-5 DAYS OF ADMISSION. 05/20/23-05/25/[address]
[2023-05-20] MEDS: OCTREOTIDE ACETATE 1.25 MG in NACL 0.9% 250 ML IV SCH (09:33)
[2023-05-20] MEDS ORDERED: MIDAZOLAM 2 MG/2 ML VIAL ONE (09:49)
[2023-05-20] MEDS ORDERED: diphenhydrAMINE 50 MG/ML VIAL ONE (09:49)
[2023-05-20] MEDS ORDERED: fentaNYL citrate 0.05 MG/ML VIAL ONE (09:50)
[2023-05-20 09:58] LABS: BASOPHILS # (AUTO) 0.2 K/uL (0.00-0.22); BASOPHILS % (AUTO) 1.4 % (0.0-2.0); EOSINOPHILS # (AUTO) 0.9 K/uL (0-0.4); EOSINOPHILS % (AUTO) 5.6 % (0.0-4.0); HEMATOCRIT 31.8 % (36-48); HEMOGLOBIN 10.4 g/dL (12.0-16.0); LYMPHOCYTES # (AUTO) 3.3 K/uL (2.5-16.5); LYMPHOCYTES % (AUTO) 21.1 % (20.5-51.1); MEAN CORPUSCULAR HEMOGLOBIN 30 pg (27-31); MEAN CORPUSCULAR HGB CONC 33 g/dL (33-37); MONOCYTES # (AUTO) 1.6 K/uL (0.8-1.0); MONOCYTES % (AUTO) 10.6 % (1.7-9.3); NEUTROPHILS # (AUTO) 9.5 K/uL (1.8-7.7); NEUTROPHILS % (AUTO) 61.3 % (42.2-75.2); PLATELET COUNT (AUTO) 184 K/uL (140-450); RED BLOOD CELL COUNT(AUTO) 3.46 MIL/uL (4.20-5.40); RED CELL DISTRIBUTION WIDTH 16.8 % (11.6-13.7); WHITE BLOOD COUNT (AUTO) 15.5 K/uL (4.8-10.8)
--- NOTE | 2023-05-20 10:00 | NUR ---
DR SAMANO CAME IN AND ASSESS PT FOR GI BLEED DID CHART REVIEW AND TALKED TO PT REGARDING PROCEDURE COLOSTOMY EXPLAINED AND PT VERBALIZED UNDERSTANDING GAVE CONSENT SIGNED. GI TEAM CAME IN AND TRANSPORT PT TO OR NO SOB NO CHEST PAIN TIME OF TRANSPORT Addendum: 05/20/23 at 1144 by SIDNEY HAZEL RN ADDITIONAL NOTES: DR. BEARD MADE AWARE STARTED SANDOSTATIN AND PROTONIX STARTED BY ANOTHER MD PER WILL LOOK ON THE ORDER AND PUT HIS ORDER.
--- NOTE | 2023-05-20 11:20 | NUR ---
PT CAME BACK FROM PROCEDURE. PT V/S 66 HR 93% ON ROOM AIR 16 RR, ROSE 103/48 PT IS SLEEPY AROUSABLE VERBL RESPONSIVE, PT HAS NO C/O NAUSEA AND VOMITING AND NO PAIN. PROCEDURE DONE IS COLONOSCOPY RECTAL CLIP #1, CAUTERIZED DONE, NO ACTIVE BLEED FOUND PER GI NURSE. POSSIBLE DIVERTICULUM BLEED. PT WAS GIVEN 8 MG VERSED 175MCG OF FENTANYL. POSSIBLE REPEAT COLO TOMORROW . WILL CONTINUE TO MONITOR.
[2023-05-20] MEDS ORDERED: fentaNYL citrate 0.05 MG/ML VIAL IVP ONE (11:30)
[2023-05-20] MEDS ORDERED: MIDAZOLAM 2 MG/2 ML VIAL IVP ONE (11:30)
--- NOTE | 2023-05-20 12:45 | NUR ---
DR. RODRIGUEZ CAME IN AND ASSESS PT DID CHART REVIEW AND MADE AWARE PT HAS LEFT KNEE PAIN 05/21 PER MD HE WILL PUT ORDERS IN AWAITING FOR ORDER.
[2023-05-20] MEDS: LACTULOSE 20 GM/30 ML UDC PO SCH ×2 (12:54→18:00)
[2023-05-20] MEDS: POLYETHYLENE GLYCOL 17 GM/PKT PO SCH ×3 (12:55→20:03)
[2023-05-20] MEDS ORDERED: LORazepam 2 MG/ML VIAL IVP PRN (15:00)
[2023-05-20] MEDS ORDERED: POTASSIUM CHLORIDE 10 MEQ TABER PO PRN (15:00)
[2023-05-20] MEDS ORDERED: DOCUSATE SODIUM 100 MG GELCAP PO PRN (15:00)
[2023-05-20] MEDS ORDERED: ACETAMINOPHEN 325 MG TAB PO PRN (15:00)
[2023-05-20] MEDS: SODIUM FERRIC GLUCONATE 125 MG in NACL 0.9% 100 ML IV SCH (15:44)
--- NOTE | 2023-05-20 15:48 | NUR ---
Spoke with Trey from [facility] per MD Kan's order. Per Trey "I'll be there in 1hr or 1.5 hrs for patient. I have another patient right now. If I can't get her today I'll call you guys." Trey's phone number is .
[2023-05-20 15:49] LABS: BASOPHILS # (AUTO) 0.2 K/uL (0.00-0.22); BASOPHILS % (AUTO) 2.1 % (0.0-2.0); EOSINOPHILS # (AUTO) 1.1 K/uL (0-0.4); EOSINOPHILS % (AUTO) 11.8 % (0.0-4.0); HEMATOCRIT 26.2 % (36-48); LYMPHOCYTES # (AUTO) 2.5 K/uL (2.5-16.5); MEAN CORPUSCULAR HEMOGLOBIN 31 pg (27-31); MEAN CORPUSCULAR HGB CONC 34 g/dL (33-37); MONOCYTES % (AUTO) 10.4 % (1.7-9.3); NEUTROPHILS # (AUTO) 4.6 K/uL (1.8-7.7); NEUTROPHILS % (AUTO) 48.7 % (42.2-75.2); PLATELET COUNT (AUTO) 167 K/uL (140-450); RED BLOOD CELL COUNT(AUTO) 2.88 MIL/uL (4.20-5.40); RED CELL DISTRIBUTION WIDTH 16.6 % (11.6-13.7); WHITE BLOOD COUNT (AUTO) 9.4 K/uL (4.8-10.8)
--- NOTE | 2023-05-20 18:00 | NUR ---
started ngt feeding marvin af 1.2 at 10ml fwf at 50 q6 hr, and order to check residual q6hr schedule to do 0000 05/21 will endorse to car shifter Addendum: 05/21/23 at 0727 by SIDNEY HAZEL RN wrong entry wrong pt
--- NOTE | 2023-05-20 19:34 | NUR ---
REPOSRT GIVEN TO YVONNE LITTLE RN AND HARVEY RANDHAWA FOR CONTINUITY OF CARE
--- NOTE | 2023-05-20 19:35 | NUR ---
RECEIVED REPORT FROM HEATH LITTLE RN. PT ADMITTED FOR GI BLEED. PT IS ALERT AND ORIENTED X3 AND WATCHING TELEVISION. PT V/S HR 80, 93% O2 SAT. 137/66 BP PT HAS NO C/O PAIN NO SOB. PT IS SR ON THE MONITOR. SOFT NON TENDER ABDOMEN PT HAS IV PERIPHERAL ON RIGHT FA (HEPLOCK) AND LEFT AC RUNNING 100 ML/HR AND OCTREOTIDE MCG/HR. PT HAS LEFT KNEE S/P KNEE REPLACEMENT WITH STERI STRIPS INTACT. PT CALL LIGHT WITHIN REACH. BED IS LOCKED AND IN LOW POSITION. KEPT PATIENT SAFE AND COMFORTABLE WILL CONTINUE TO MONITOR.
[2023-05-20] MEDS: MORPHINE SULFATE 2 MG/ML SYR IVP PRN (20:03)
--- NOTE | 2023-05-20 21:00 | NUR ---
PT IS RELAX, CALM AND WATCHING TELEVISION.
[2023-05-20] MEDS ORDERED: ZOLPIDEM 5 MG TAB ONE (22:03)
[2023-05-20 22:05] LABS: BASOPHILS # (AUTO) 0.2 K/uL (0.00-0.22); BASOPHILS % (AUTO) 1.5 % (0.0-2.0); EOSINOPHILS # (AUTO) 1.3 K/uL (0-0.4); EOSINOPHILS % (AUTO) 12.5 % (0.0-4.0); HEMOGLOBIN 10.1 g/dL (12.0-16.0); LYMPHOCYTES # (AUTO) 3.3 K/uL (2.5-16.5); LYMPHOCYTES % (AUTO) 30.3 % (20.5-51.1); MEAN CORPUSCULAR HEMOGLOBIN 31 pg (27-31); MEAN CORPUSCULAR HGB CONC 34 g/dL (33-37); MEAN CORPUSCULAR VOLUME 91.5 fL (80-94); MONOCYTES # (AUTO) 1.3 K/uL (0.8-1.0); MONOCYTES % (AUTO) 11.7 % (1.7-9.3); NEUTROPHILS # (AUTO) 4.7 K/uL (1.8-7.7); PLATELET COUNT (AUTO) 170 K/uL (140-450); RED BLOOD CELL COUNT(AUTO) 3.28 MIL/uL (4.20-5.40); RED CELL DISTRIBUTION WIDTH 16.6 % (11.6-13.7); WHITE BLOOD COUNT (AUTO) 10.7 K/uL (4.8-10.8)
[2023-05-20] MEDS: ZOLPIDEM 10 MG TAB PO PRN (22:06)
--- NOTE | 2023-05-20 22:50 | NUR ---
PT TRANSPORTED TO NUCLEAR MEDICINE FOR BLEED SCAN, MONITOR ATTACHED.PT ON ROOM AIR.NO C/O PAIN AT THIS TIME.
[2023-05-21] VITALS (13 sets, daily range): BP systolic 103–157; BP diastolic 32–80; PULSE 59–98; RESP 12–29; TEMP 97.5–98.6; O2SAT 92–99
--- NOTE | 2023-05-21 | NUR ---
PT STILL AT NUCLEAR MEDICINE FOR THE PROCEDURE, TOLERATING PROCEDURE.WILL CONTINUE TO CLOSELY MONITOR PT
--- NOTE | 2023-05-21 01:00 | NUR ---
PT CAME BACK FROM NUCLEAR MEDICINE, PROCEDURE NOT COMPLETED, PT REQUESTED TO STOP THE PROCEDURE.SHE SAID "SHE IS NOT COMFORTABLE LYING ON THE TABLE ANYMORE".NUCLEAR TECH STOPPED THE SCAN. PT AWAKE,ALERT AND ORIENTED.ON ROOM AIR.PERIPHERAL IV INTACT. TAKEN BACK TO ICU #7, NUCLEAR PRECAUTION SIGN IN PLACE OUTSIDE THE ROOM AND ON THE CHART. RADIOACTIVE UNTIL 05/21/23 AT 2330
--- NOTE | 2023-05-21 03:25 | NUR ---
PT URINATED. UNABLE TO COLLECT URINE SAMPLE DUE TO PT UNDER "NUCLEAR MEDICINE PRECAUTION", URINE PRECAUTION - PT RADIOACTIVE UNTIL 05/21/23 2330.
[2023-05-21 03:52] LABS: BASOPHILS # (AUTO) 0.2 K/uL (0.00-0.22); BASOPHILS % (AUTO) 1.9 % (0.0-2.0); EOSINOPHILS # (AUTO) 1.2 K/uL (0-0.4); EOSINOPHILS % (AUTO) 10.4 % (0.0-4.0); HEMOGLOBIN 10.2 g/dL (12.0-16.0); LYMPHOCYTES # (AUTO) 3.2 K/uL (2.5-16.5); LYMPHOCYTES % (AUTO) 27.2 % (20.5-51.1); MEAN CORPUSCULAR HEMOGLOBIN 31 pg (27-31); MEAN CORPUSCULAR HGB CONC 34 g/dL (33-37); MEAN CORPUSCULAR VOLUME 90.5 fL (80-94); MONOCYTES # (AUTO) 1.2 K/uL (0.8-1.0); MONOCYTES % (AUTO) 10.5 % (1.7-9.3); NEUTROPHILS # (AUTO) 5.8 K/uL (1.8-7.7); PLATELET COUNT (AUTO) 186 K/uL (140-450); RED BLOOD CELL COUNT(AUTO) 3.31 MIL/uL (4.20-5.40); RED CELL DISTRIBUTION WIDTH 16.9 % (11.6-13.7); WHITE BLOOD COUNT (AUTO) 11.7 K/uL (4.8-10.8)
[2023-05-21 04:00] LABS: ANION GAP 12.9 (8-16); CARBON DIOXIDE 26.5 mmol/L (21-32); CHLORIDE 106 mmol/L (98-107); CREATININE 0.8 mg/dL (0.6-1.3); GLUCOSE 124 mg/dL (74-106); POTASSIUM 4.4 mmol/L (3.5-5.1); SODIUM SERUM 141 mmol/L (136-145); UREA NITROGEN, BLOOD 17 mg/dL (7-18)
--- NOTE | 2023-05-21 04:00 | NUR ---
PT DEFECATED LARGE AMOUNT OF SEMI-SOFT AND LOOSE BROWNISH STOOL. NO BLEEDING NOTED.
--- NOTE | 2023-05-21 04:05 | NUR ---
MORNING CARE DONE. KEPT COMFORTABLE. PROVIDED DEB PINA .
[2023-05-21] MEDS: MORPHINE SULFATE 2 MG/ML SYR IVP PRN ×2 (04:09→18:22)
--- NOTE | 2023-05-21 07:28 | NUR ---
ENDORSED PT TO NURSE MANDIE RANDHAWA AND NURSE SIDNEY RN FOR CONTINUITY OF CARE. ALL QUESTIONS ANSWERED.
--- NOTE | 2023-05-21 07:30 | NUR ---
RECEIVED REPORT FROM YVONNE RN AND HARVEY RANDHAWA FORPT ADMIT FOR GI BLEED PT IS ALERT AND ORIENTED X 3 NO C/O OF SOB AND PAIN PT ON ROOM AIR AND SR ON THE MONITOR. VS TEMP 98.6, HR 74 RR 16 O2 SAT 94% PT HAS NO BM FOR ACQUISITION LEAD PT CONNECTED ON [employer] FOR URINE HAS 1000 ML OUTPUT KAVON URINE COLOR. PT HAS 2 IV PERIPHERAL SITE LEFT AC AND RIGHT FA HAS IV RUNNING NS AT TKO AND AND SANDOSTATIN AT 10 ML/HR . PT HAS LEFT KNEE STERI STRIPS FOR S/P SURGICAL SITE. REPOSRT PT HAS UNDERGONE NM BLEED CAN 05/20/23 AT 2330 AND WILL BE RADIOACTIVE FOR 05/21/23 2330 PT WILL HAVE ANOTHER CBC LAB AT 0900. PT IS CALM AND COOPERATIVE VERBALIZED UNDERSTANDING OF SAFETY FALL PRECAUTION, CALL LIGHT WITHIN REACH BED LOCKED AND IN LOW POSITION WILL CONTINUE TO MONITOR.
[2023-05-21] MEDS: LACTULOSE 20 GM/30 ML UDC PO SCH ×3 (08:18→14:30)
[2023-05-21] MEDS: POLYETHYLENE GLYCOL 17 GM/PKT PO SCH ×2 (08:19→12:59)
[2023-05-21] MEDS: OCTREOTIDE ACETATE 1.25 MG in NACL 0.9% 250 ML IV SCH (08:20)
[2023-05-21 09:38] LABS: BASOPHILS # (AUTO) 0.1 K/uL (0.00-0.22); BASOPHILS % (AUTO) 0.6 % (0.0-2.0); EOSINOPHILS # (AUTO) 1.2 K/uL (0-0.4); HEMATOCRIT 26.4 % (36-48); HEMOGLOBIN 8.9 g/dL (12.0-16.0); LYMPHOCYTES # (AUTO) 2.1 K/uL (2.5-16.5); MEAN CORPUSCULAR HEMOGLOBIN 31 pg (27-31); MEAN CORPUSCULAR HGB CONC 34 g/dL (33-37); MEAN CORPUSCULAR VOLUME 91.3 fL (80-94); MONOCYTES % (AUTO) 11.4 % (1.7-9.3); NEUTROPHILS # (AUTO) 4.7 K/uL (1.8-7.7); PLATELET COUNT (AUTO) 171 K/uL (140-450); RED BLOOD CELL COUNT(AUTO) 2.89 MIL/uL (4.20-5.40); RED CELL DISTRIBUTION WIDTH 16.8 % (11.6-13.7); WHITE BLOOD COUNT (AUTO) 8.9 K/uL (4.8-10.8)
--- NOTE | 2023-05-21 09:49 | NUR ---
PREOP CHECKLIST DONE NEED COVID SWAB TEST SPECIMEN SEND TODAY TO LAB. CBC FOR TODAY LAB CAME IN AND DID BLOOD DRAW. NURSES CAME IN TO PT ROOM TO DO REPOSITIONING AND CHECK FOR SIGNS OF ACTIVE BLEEDING NONE NOTED. PT CALL LIGHT WITHIN REACH MAKE SAFE AND COMFORTABLE. BED LOCKED AND IN LOW POSITION. JESSI CONTINUE TO MONITOR.
--- NOTE | 2023-05-21 11:04 | NUR ---
PT. WITH LOW LAURYN SCALE AT MODERATE TO HIGH RISK, CONTINUE TO FOLLOW PRESSURE INJURY PREVENTION INTERVENTIONS. -POSITIONING: TURN AND REPOSITION PATIENT Q 2H OR SOONER USE PILLOWS TO KEEP BONY PROMINENCES FROM DIRECT CONTACT WITH SURFACES USE REPOSITIONING WEDGES TO PROVIDE 30-DEGREE ANGLE FOR SIDE LYING POSITIONS OFFLOADING OR FOAM DRESSING TO ALL TUBING TO PREVENT MEDICAL DEVICES RELATED PRESSURE INJURY -RE-EVALUATING AND MANAGING INCONTINENCE MONITOR SKIN CONDITION DURING POSITION CHANGE DO NOT MASSAGE REDNESS, BONY PROMINENCES FREQUENT EARL-CARE AND PROVIDE BARRIER CREAMS PRN IF SOILING MOISTURE CONTROL BY OFFER BED SWANSON/URINAL /ABSORBENT PAD TO WICK AND HOLD MOISTURE KEEP SKIN DRY AND PROTECT FROM FRICTION -MANAGE FRICTION/SHEAR/MOBILITY KEEP HOB AT THE LOWEST LEVEL OF ELEVATION NO MORE THAN 30 DEGREE UNLESS OTHERWISE CONTRAINDICATED USE LIFT SHEET OR TRANSFER DEVICE TO MOVE PATIENT AND PREVENT LATERAL SHEER. PROTECT HEELS, ELBOWS BONY PROMINENCES WITH SKIN BERRIES OR FOAM DRESSING IF EXPOSED TO FRICTION OFFLOAD BILATERAL HEELS BY PLACING PILLOWS UNDER CALVES AT ALL TIMES, UNLESS OTHERWISE CONTRAINDICATED -PRESSURE REDISTRIBUTION SURFACE THERAPY YEVGENIY ISOFLEX MATTRESS -NUTRITION: PLEASE FOLLOW RD RECOMMENDATIONS AND OFFER NUTRITION SUPPLEMENTS IF ORDERED. PLEASE CONTACT WOUND CARE NURSE FOR ANY QUESTION AND CHANGE OF WOUND CONDITION.
--- NOTE | 2023-05-21 11:15 | NUR ---
DR. VELASQUEZ CAME IN AND ASSESS PT DID CHART REVIEW MADE AWARE OF LATEST LABS AND NO SYMPTOMS OG GI BLEED HAS 2 BOWEL MOVEMENTS NO BLEEDING NOTED. PT WANTS TO TALKED TO DR SAMANO REGARDING THE PROCEDURE MADE DR. SAMANO AWARE. REPOSITIONED PATIENT CALL LIGHT WITIHIN REACH KEPT SAFE FALL PRECAUTUIN APPLIED.
--- NOTE | 2023-05-21 12:00 | NUR ---
DR MCPHERSON CAME IN AND ASSESS PT DID REVIEW CHART MADE AWARE OF LABS TODAY NEW ORDER FOR CBC AT 6PM
[2023-05-21] MEDS: SODIUM FERRIC GLUCONATE 125 MG in NACL 0.9% 100 ML IV SCH (12:55)
--- NOTE | 2023-05-21 13:00 | NUR ---
DR. SAMANO CAME IN AND ASSESS PT AND DID CHART REVIEW WILL TALKED TO PT FOR THE CONSENT FOR EGD AND COLO SCHEDULE TODAY.
--- NOTE | 2023-05-21 13:41 | NUR ---
DC PLANNING A 77 YO FEMALE PATIENT ,RESIDENT OF [facility] ADMITTED TO ICU FOR EVALUATION OF LOWER GI BLEED.S.P RIGHT KNEE REPLACEMENT 4 WEEKS AGO AND IS BEING F/U BY ORTHO.PATIENT COMPLAINED OF BLOOD IN HER BM AND WAS GIVEN 1 UNIT OF BLOOD.ON OCTREOTIDE DRIP.GI ON BOARD.COLONOSCOPY NOT COMPLETED DUE TO POOR BOWEL PREP.LATEST HGB 10.2.POSSIBLE REPEAT COLONOSCOPY AND EGD PER GI.DC PLAN- BACK TO [facility] WHEN PATIENT RESPONDS TO TX.CM TO FOLLOW. Addendum: 05/21/23 at 1354 by ROSY OSBORNE CM LATE ENTRY GI BLEED SCAN-NO EVIDENCE OF ACTIVE BLEEDING.ABDOMEN/PELVIS CT - NON OBSTRUCTING NEPHROLITHIASIS.PATIENT WILL BE DOWNGRADED TO TELEMETRY. Addendum: 05/22/23 at 1613 by MAMADOU DAVIDSON CM RECEIVED ORDER FOR PATIENT TO GO BACK TO SNF TO CONTINUE REHAB. FAXED ALL PAPERWORK TO [facility] AND [facility]. SPOKE WITH ADRYAN AT [facility] LOCATED AT [address] [place] [address]. PATIENT WILL GO TO ROOM 32-A UNDER DR SCHMITZ. SNF AUTH# [id number] AND TRANSPORT AUTH# [id number] GIVEN BY BARRETT AT [facility]. TRANSPORTATION ARRANGED WITH [facility] WITH A 1800 MANAGER TRANSFER TIME. NURSE ARSALAN AND DAUGHTER HARVEY AWARE OF THE ABOVE INFORMATION.
[2023-05-21] MEDS ORDERED: FLUMAZENIL 0.5 MG/5 ML VIAL IVP ONE (14:09)
[2023-05-21] MEDS ORDERED: FENTANYL C 0.1 MG/HR PATCH TD SCH (14:30)
--- NOTE | 2023-05-21 14:30 | NUR ---
1400 EGD/COLO BY DR SAMANO PROCEDURE DONE AT PT BEDSIDE PT RECEIVED 7 MG VERSED AND [address]P [address] SAMANO. PT TOLERATTED PROCEDURE WELL NO SOB NO PAIN. PROCEDURE DONE AT 1430. PT BED LINEN CHANGED, REPOSITIONED AND KEEP CALL LIGHT WITHING REACH BED LOCKED AND IN LOW POSITION.
[2023-05-21] MEDS ORDERED: MIDAZOLAM 2 MG/2 ML VIAL IV ONE (14:50)
[2023-05-21] MEDS ORDERED: fentaNYL citrate 0.05 MG/ML VIAL IVP ONE (15:20)
[2023-05-21 18:33] LABS: BASOPHILS # (AUTO) 0.3 K/uL (0.00-0.22); BASOPHILS % (AUTO) 3.2 % (0.0-2.0); EOSINOPHILS % (AUTO) 11.4 % (0.0-4.0); HEMATOCRIT 27.9 % (36-48); HEMOGLOBIN 9.4 g/dL (12.0-16.0); LYMPHOCYTES # (AUTO) 3.1 K/uL (2.5-16.5); LYMPHOCYTES % (AUTO) 37.1 % (20.5-51.1); MEAN CORPUSCULAR HEMOGLOBIN 31 pg (27-31); MEAN CORPUSCULAR HGB CONC 34 g/dL (33-37); MEAN CORPUSCULAR VOLUME 91.8 fL (80-94); MONOCYTES # (AUTO) 0.9 K/uL (0.8-1.0); MONOCYTES % (AUTO) 10.2 % (1.7-9.3); NEUTROPHILS # (AUTO) 3.2 K/uL (1.8-7.7); NEUTROPHILS % (AUTO) 38.1 % (42.2-75.2); PLATELET COUNT (AUTO) 47 K/uL (140-450); RED BLOOD CELL COUNT(AUTO) 3.04 MIL/uL (4.20-5.40); RED CELL DISTRIBUTION WIDTH 16.9 % (11.6-13.7); WHITE BLOOD COUNT (AUTO) 8.4 K/uL (4.8-10.8)
--- NOTE | 2023-05-21 19:33 | NUR ---
REPOSRT GIVEN TO DIOGO RANDHAWA NIGHT FOR CONTIUITY OF CARE ALL QUESTIONS ANSWERED.
--- NOTE | 2023-05-21 19:40 | NUR ---
TRANSFER OF CARE FROM DAY SHIFT, REPORT RECEIVED FROM SIDNEY Clement RN AND MANDIE Flores RN. PATIENT RECEIVED AWAKE ALERT AND SITTING UP IN BED WATCHING TV. PATIENT DOES NOT APPEAR TO BE IN DISTRESS. PATIENT'S CALL LIGHT IS WITHIN REACH. PATIENT IS CURRENTLY ON NUCLEAR MEDICINE RADIOACTIVE PRECAUTIONS: PATIENT HAD NUCLEAR MEDICINE BLEED SCAN ON 05/20/2023 AT 2330 AND WILL COME OFF OF NUCLEAR MEDICINE PRECAUTIONS ON 05/21/2023 AT 2330. PATIENT WAS REMINDED OF PRECAUTION STATUS. PATIENT HAS [address], 22G IN THE RIGHT FOREARM AND 20G IN THE LEFT AC CURRENT DIET IS CLEAR LIQUID DIET. PATIENT IS ON ROOM AIR. PATIENT IS NORMAL SINUS ON BEDSIDE MONITOR. PER DAY SHIFT, PATIENT HAS BEEN DOWNGRADED TO TELE STATUS AND WILL TRANSFER ONCE BED BECOMES AVAILABLE. PATIENT HAS PURWICK IN PLACE. BED HAS BEEN LEFT IN LOWEST POSITION. VITALS AT START OF SHIFT: TEMP = 98.2F, HR = 65, O2 SAT = 95%, BP = 127/60, R = 16. WILL CONTINUE TO MONITOR PATIENT FOR ANY CHANGE IN CONDITION AND NOTIFY MD EXPEDITIOUSLY
[2023-05-21] MEDS ORDERED: ZOLPIDEM 5 MG TAB ONE (21:19)
--- NOTE | 2023-05-21 21:30 | NUR ---
PATIENT REQUESTING AUSTYN TO HELP HER SLEEP
[2023-05-21] MEDS: ZOLPIDEM 10 MG TAB PO PRN (21:47)
[2023-05-22] VITALS: BP 143/44; PULSE 60; RESP 16; TEMP 97.8; O2SAT 90
[2023-05-22 02:00] VITALS: BP 114/42; PULSE 73; RESP 16; O2SAT 93
--- NOTE | 2023-05-22 02:29 | NUR ---
CALL PLACED TO [facility], PATIENT ENDORSED TO [facility]ON. PROVIDED MOST RECENT VITAL SIGNS AND URINE OUTPUT. ALL QUESTIONS ANSWERED. PATIENT WILL TRANSFER TO 121
--- NOTE | 2023-05-22 02:42 | NUR ---
[id number] NURSE DIOGO WITH HAND-OFF REPORT FOR CONTINUITY OF CARE. ENDORSED:77 YO FEMALE FROM [facility] WITH DX OF RECTAL BLEEDING AND HX OF LEFT KNEE SURGERY 3 WEEKS AGO. UPPER GI, SIGMOIDOSCOPY AND COLONOSCOPY ATTEMPTED TODAY. COLONOSCOPY NORMAL. SIGMOID AND COLON PROCEDURE UNSUCCESSFUL DUE TO INCOMPLETE PREP. AWAITING ARRIVAL TO FLOOR.
--- NOTE | 2023-05-22 03:30 | NUR ---
PATIENT TRANSFERRED VIA GURNEY TO [facility], RM 121A. PATIENT ARRIVED IN STABLE CONDITION.
[2023-05-22 04:00] VITALS: BP 118/52; PULSE 69; RESP 20; O2SAT 93
[2023-05-22] MEDS: MORPHINE SULFATE 2 MG/ML SYR IVP PRN ×2 (04:04→10:33)
--- NOTE | 2023-05-22 04:18 | NUR ---
0340 RECEIVED PT FROM ICU VIA BED. VS 98.3-69-20-118/52. GENERAL ASSESSMENT AND ORIENTED TO ROOM AND CALL LIGHT. NO RECTAL BLEEDING. CIRCULATION, SENSATION AND MOVEMENT WNL EXTREMITIES X4LEFT KNEE PAIN 05/21. MEDICATED WITH MORPHINE 2 MG VIA IVP. VERIFIED WITH ICU NURSE DIOGO NO REPEAT OF COLONOSCOPY SIGMOIDOSCOPY FOR TOMORROW. PT STATED RETURNING TO SNF TOMORROW. LIGHTS OUT, PT ATTEMPTING TO REST. WILL MONITOR AND ASSIST NEEDED.
[2023-05-22 06:00] VITALS: BP 122/43; PULSE 69; RESP 18; O2SAT 92
[2023-05-22 06:06] LABS: ANION GAP 12.2 (8-16); CARBON DIOXIDE 25.2 mmol/L (21-32); CHLORIDE 107 mmol/L (98-107); CREATININE 0.7 mg/dL (0.6-1.3); GLUCOSE 107 mg/dL (74-106); POTASSIUM 4.4 mmol/L (3.5-5.1); SODIUM SERUM 140 mmol/L (136-145); UREA NITROGEN, BLOOD 13 mg/dL (7-18)
--- NOTE | 2023-05-22 07:20 | NUR ---
RECEIVED REPORT FROM [employer]RIAL [employer]UCATION INSTRUCTOR NURSE FOR CONTINUITY OF CARE. PT STABLE AT THIS TIME.
[2023-05-22 08:00] VITALS: BP 140/58; PULSE 73; PULSE 79; RESP 18; TEMP 98.1; O2SAT 100
[2023-05-22] MEDS ORDERED: PANTOPRAZOLE 40 MG TABEC PO SCH (09:00)
[2023-05-22] MEDS: LACTULOSE 20 GM/30 ML UDC PO SCH (10:32)
[2023-05-22 12:00] VITALS: BP 101/56; PULSE 60; PULSE 75; RESP 18; TEMP 97.7; O2SAT 99
[2023-05-22] MEDS: SODIUM FERRIC GLUCONATE 125 MG in NACL 0.9% 100 ML IV SCH (12:57)
[2023-05-23] MEDS ORDERED: LACTULOSE 20 GM/30 ML UDC PO SCH (09:00)
[2023-05-23] MEDS ORDERED: PSYLLIUM 12.2 GM/PKT PO SCH (09:00)
== END 2023-05-22 19:00 | DRG 377 ==
LOC: MED 23:08 → MTU 05-20 02:10 → MIC 05-20 02:17 → MTU 05-22 03:45
PROVIDERS: ADMIT Family Medicine; ATTEND Family Medicine
PROC: 30233N1 Transfusion of Nonautologous Red Blood Cells into Peripheral Vein, Percutaneous Approach (ICD-10-PCS; 2023-05-20)
PROC: 0W3P8ZZ Control Bleeding in Gastrointestinal Tract, Via Natural or Artificial Opening Endoscopic (ICD-10-PCS; principal; 2023-05-20 10:00)
PROC: 0DJ08ZZ Inspection of Upper Intestinal Tract, Via Natural or Artificial Opening Endoscopic (ICD-10-PCS; 2023-05-21)
PROC: 0DJD8ZZ Inspection of Lower Intestinal Tract, Via Natural or Artificial Opening Endoscopic (ICD-10-PCS; 2023-05-21)
DX: K92.2 Gastrointestinal hemorrhage, unspecified (principal); R65.11 Systemic inflammatory response syndrome (SIRS) of non-infectious origin with acute organ dysfunction; D62 Acute posthemorrhagic anemia; E44.0 Moderate protein-calorie malnutrition; G62.9 Polyneuropathy, unspecified; K56.41 Fecal impaction; Z68.30 Body mass index [BMI] 30.0-30.9, adult; E78.5 Hyperlipidemia, unspecified; Z20.822 Contact with and (suspected) exposure to COVID-19; Z96.652 Presence of left artificial knee joint
CPT/HCPCS: 36415; 36430; 36600; 71045; 78278; 80048; 80053; 82150; 82803; 83036; 83690; 83735; 85025; 86886; 86900; 86901; 86920; 87081; 96374; 99291; A9560; C9113; J1200; J2250; J2270; J2354; J2916; J3010; J3490; J7030; P9016; Q0092